=== PATIENT | female | born 1995 | race Caucasian/White ===

== ENCOUNTER 2021-05-17 12:18 | Emergency (ER) | payer OTHER, SELFPAY ==
--- NOTE | 2021-05-17 12:24 | ED.EAR ---
HPI - Ear Problem General Chief complaint: Ear Stated complaint: fever/ear pain Time Seen by Provider: 05/17/21 12:24 Source: patient, family and RN notes reviewed History of Present Illness HPI Narrative: Patient is a 25-year-old female who presents the urgent care with her mother with complaints of left ear pain, drainage and sore throat. Patient states she has had an intermittent fever off and on since Friday and she has been taking ibuprofen. Denies of any known Covid or strep exposures. Complains more of a left-sided sore throat now. No other upper respiratory symptoms. Patient has not had the Covid vaccine. No other acute complaints. No acute distress noted. Mother and patient aware of the plan of care. Some parts of this dictation were generated by voice recognition software and may contain typographical and/or grammatical inaccuracies. Related Data Home Medications Medication Instructions Recorded Confirmed No Home Medications 05/17/21 05/17/21 Allergies Allergy/AdvReac Type Severity Reaction Status Date / Time No Known Allergies Allergy Verified 05/17/21 12:29 Review of Systems Review of Systems: CONSTITUTIONAL: Reports of intermittent fever EYES: Denies visual changes, redness, or discharge. ENT: Reports of sore throat, postnasal drainage, left ear pain CARDIOVASCULAR: Denies chest pain, palpitations, or edema. RESPIRATORY: Denies cough or dyspnea. GASTROINTESTINAL: Denies abdominal pain, nausea, vomiting, or diarrhea. GENITOURINARY: Denies dysuria or hematuria. SKIN: Denies rash or itching. MUSCULOSKELETAL: Denies back pain, joint pain, or myalgia. NEUROLOGIC: Denies headache, numbness, or weakness. All other systems reviewed are negative, except as documented in HPI. PMFSH Social History Social History Smoking status: Never smoker Alcohol intake: never Comments At the time of my signature, I reviewed and agree with the nursing past medical, surgical, social, and family history. There is no relevant family history pertinent to the patient complaint. Exam Narrative: GENERAL: This is a well-nourished, well-developed patient, in no apparent distress. HEAD: normocephalic, atraumatic. EYES: PERRL. Sclera clear/white. Vision is grossly intact. EARS: External ears normal, auditory canals clear and without drainage, mild to moderate fluid noted behind bilateral TMs without otitis, TMs normal without perforation. Hearing grossly intact. NOSE: External nose normal with no obvious nasal discharge, nares without redness, no rhinorrhea. THROAT: Mucous membranes moist, mild erythema noted posterior oropharynx with mild postnasal drainage. NECK: Neck supple CARDIOVASCULAR: Regular rate and rhythm without murmurs, gallops, or rubs. RESPIRATORY: Clear to auscultation. Breath sounds equal bilaterally. No wheezes, rales, or rhonchi. SKIN: warm, intact with no suspicious lesions or rash, good texture and turgor. NEURO: awake, alert, and oriented to person, place and time. There were no obvious focal neurologic abnormalities. EXTREMITIES: No clubbing, cyanosis, or edema. Course Vital Signs Vital signs: Vital Signs Temperature 97.0 F L 05/17/21 12:27 Pulse Rate 95 05/17/21 12:27 Respiratory Rate 16 05/17/21 12:27 Blood Pressure 113/63 05/17/21 12:27 Pulse Oximetry 99 05/17/21 12:27 Temperature 97.0 F L 05/17/21 12:27 Pulse Rate 95 05/17/21 12:27 Respiratory Rate 16 05/17/21 12:27 Blood Pressure 113/63 05/17/21 12:27 Pulse Oximetry 99 05/17/21 12:27 Reviewed Medical Decision Making MDM Narrative Medical decision making narrative: Reviewed lab results with the patient. She is aware that her strep swab was negative. Educated patient on culture we will call within 72 hours if culture is positive and antibiotics are necessary. Advised the patient to complete the steroid regimen as prescribed. May use an [id number]
[2021-05-17 12:27] VITALS: BP 113/63; PULSE 95; RESP 16; TEMP 36.1; O2SAT 99
== END 2021-05-17 12:58 | disposition home or self-care (01) ==
PROVIDERS: Emergency Provider Nurse Practitioner Family; PCP Family Medicine
DX: J02.9 Acute pharyngitis, unspecified (principal)
CPT/HCPCS: 87081; 87880; 99213; G0463

== ENCOUNTER → 2021-07-19 17:22 | Outpatient (CLI) | payer OTHER, SELFPAY ==
--- NOTE | ~2021-07-19 | XR_ITS ---
EXAMINATION: XR hand LT min 3V DATE: 07/19/2021 17:34 INDICATION: Left hand injury and pain. TECHNIQUE: 3 views of left hand were obtained. COMPARISON: None. FINDINGS: Bone alignment is normal. No fracture. Joint spaces are well maintained. IMPRESSION: 1. Normal left hand. Reviewed, dictated and finalized at location A. IMPRESSION: 1. Normal left hand.
== END ==
PROVIDERS: PCP Family Medicine; Visit Provider Physician Assistant
DX: M79.642 Pain in left hand (principal)
CPT/HCPCS: 73130